=== PATIENT | male | born 2000 | race African-American/Black ===

== ENCOUNTER 2024-01-02 02:40 | Emergency (ER) | payer OTHER ==
[~2024-01-02] VITALS: Ht 180.3 cm; Wt 68.6 kg
[2024-01-02] MEDS ORDERED: ONDANSETRON 4MG 2ML VIAL As Ordered ONE (02:52)
[2024-01-02] MEDS: ONDANSETRON 4MG 2ML VIAL IV ONE (02:56)
[2024-01-02] MEDS: NS 1,000 ML IV ONE ×2 (02:56→04:22)
[2024-01-02] MEDS ORDERED: UNRESOLVED CLARIFICATION ENTRY XX STA (03:00)
[2024-01-02 03:08] LABS: HEMATOCRIT 40.6 % (42.0-52.0); HEMOGLOBIN 13.7 g/dl (13.5-17.5); MEAN CORPUSCULAR HEMOGLOBIN 29.7 pg (27.0-33.0); MEAN CORPUSCULAR HGB CONC 33.7 g/dl (32.0-36.5); MEAN CORPUSCULAR VOLUME 87.9 fl (80.0-96.0); PLATELET COUNT, AUTOMATED 227 10^3/uL (150-450); RED BLOOD COUNT 4.62 10^6/uL (4.30-6.10)
[2024-01-02 03:34] LABS: ETHYL ALCOHOL (ETHANOL) 0.253 % (0.000-0.010)
[2024-01-02 03:36] LABS: ALBUMIN 4.2 G/DL (3.2-5.2); ALKALINE PHOSPHATASE 71 U/L (46-116); ALT/SGPT 33 U/L (7.0-40); AST/SGOT 26 U/L (<34); BILIRUBIN,DIRECT 0.1 MG/DL (<0.4); BILIRUBIN,TOTAL 0.4 MG/DL (0.3-1.2); BLOOD UREA NITROGEN 15 MG/DL (9-23); CALCIUM LEVEL 8.9 MG/DL (8.5-10.1); CARBON DIOXIDE LEVEL 27 MMOL/L (20-31); CHLORIDE LEVEL 104 MMOL/L (98-107); CREATININE FOR GFR 0.79 MG/DL (0.70-1.30); GLOMERULAR FILTRATION RATE > 60.0 (>60); GLUCOSE, FASTING 143 MG/DL (60-100); POTASSIUM SERUM 3.3 MMOL/L (3.5-5.1); SALICYLATE LEVEL < 3.0 MG/DL (<30); SODIUM LEVEL 140 MMOL/L (136-145)
[2024-01-02 03:38] LABS: THYROID STIMULATING HORMONE 0.656 uIU/ML (0.55-4.78)
[2024-01-02 07:05] LABS: AMPHETAMINES LEVEL URINE NEGATIVE (NEGATIVE); BARBITURATES URINE NEGATIVE (NEGATIVE); BENZODIAZEPINES URINE NEGATIVE (NEGATIVE); COCAINE METABOLITE URINE NEGATIVE (NEGATIVE); METHADONE URINE NEGATIVE (NEGATIVE); OPIATES URINE NEGATIVE (NEGATIVE); PHENCYCLIDINE URINE NEGATIVE (NEGATIVE)
[2024-01-02 07:06] LABS: CANNABINOIDS URINE NEGATIVE (NEGATIVE)
[2024-01-02 11:16] VITALS: BP 118/68; TEMP 98.3; O2SAT 99
== END 2024-01-02 11:27 | disposition home or self-care (01) ==
LOC: M ED 02:40 → EDBD 02:40 → M ED 11:27
DX: F10.120 Alcohol abuse with intoxication, uncomplicated (principal)
CPT/HCPCS: 80048; 80076; 80143; 80307; 82077; 83605; 84443; 85027; 87635; 96361; 96374; 99285; J2405